=== PATIENT | male | born 1975 | race Hispanic/Latino ===

== ENCOUNTER 2017-11-24 11:08 | Emergency (ER) | payer OTHER ==
[2017-11-24] MEDS ORDERED: IBUPROFEN 400 MG TAB ONE (11:56)
[2017-11-24] MEDS ORDERED: HYDROCODONE/APAP 5/325 MG TAB ONE (12:39)
--- NOTE | 2017-11-24 12:50 | RAD REPORT ---
EXAM DESCRIPTION: RAD -Hand Left 3 View - 11/24/2017 12:07 pm CLINICAL HISTORY: Left hand pain status post injury FINDINGS: An avulsion fracture involves the third terminal tuft. No dislocation is seen
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
== END 2017-11-24 13:44 | disposition home or self-care (01) ==
LOC: ER 11:08
DX: S62.663A Nondisplaced fracture of distal phalanx of left middle finger, initial encounter for closed fracture (principal); W23.1XXA Caught, crushed, jammed, or pinched between stationary objects, initial encounter; Y93.9 Activity, unspecified; Y92.89 Other specified places as the place of occurrence of the external cause
CPT/HCPCS: 99284